=== PATIENT | female | born 1965 | race Caucasian/White ===

== ENCOUNTER 2017-05-25 06:20 | Day surgery (SDC) | payer BC ==
[~2017-05-25 06:20] MED LIST: Sodium Chloride 0.9% 10 ML Syringe FLUSH PRN; Sodium Chloride 0.9% 2.5 ML Syringe FLUSH PRN
[2017-05-25] MEDS ORDERED: Lactated Ringers 1,000 ML IV SCH (06:45)
[2017-05-25] MEDS ORDERED: Lidocaine 2% 5 ML SDV ONE (06:54)
[2017-05-25] MEDS ORDERED: Propofol 200 MG/20 ML SDV ONE (06:54)
[2017-05-25] MEDS ORDERED: fentaNYL 100 MCG/2 ML SDV ONE ×2 (06:54→08:15)
[2017-05-25] MEDS ORDERED: Ondansetron 4 MG/2 ML SDV ONE (06:54)
[2017-05-25] MEDS ORDERED: Midazolam 1 MG/ML 2 ML SDV ONE (06:54)
[2017-05-25] MEDS ORDERED: Acetaminophen 1,000 MG in Premix Bag 1 BAG IV ONE (07:36)
--- NOTE | 2017-05-25 07:39 | PCM.PREANE ---
Preanesthetic Assessment - Anesthesia/Transfusion/Family Hx Anesthesia History: Prior Anesthesia Without Reaction Family History of Anesthesia Reaction: No Transfusion History: No Prior Transfusion(s) - Review of Systems General: No Symptoms Pulmonary: No Symptoms Cardiovascular: No Symptoms Gastrointestinal: No Symptoms Neurological: No Symptoms Other: Reports: None - Physical Assessment NPO Status Date: 05/24/17 NPO Status Time: 19:00 O2 Sat by Pulse Oximetry: 96 Respiratory Rate: 16 Vital Signs: Last Vital Signs Temp 36.7 C 05/25/17 06:41 Pulse 80 05/25/17 06:41 Resp 16 05/25/17 06:41 BP 123/72 05/25/17 06:41 Pulse Ox 96 05/25/17 06:41 Height: 1.6 m Weight: 65.317 kg ASA Class: 2 Mental Status: Alert & Oriented x3 Airway Class: Mallampati = 1 Dentition: Reports: Normal Dentition ROM/Head Extension: Full Lungs: Clear to Auscultation - Lab Values: Laboratory Last Values WBC 8.56 K/uL (4.0-11.0) 05/24/17 14:41 RBC 4.41 M/uL (4.30-5.90) 05/24/17 14:41 Hgb 14.2 g/dL (12.0-16.0) 05/24/17 14:41 Hct 41.3 % (36.0-46.0) 05/24/17 14:41 MCV 93.7 fL (80.0-98.0) 05/24/17 14:41 MCH 32.2 pg (27.0-32.0) H 05/24/17 14:41 MCHC 34.4 g/dL (31.0-37.0) 05/24/17 14:41 RDW Std Deviation 44.3 fl (28.0-62.0) 05/24/17 14:41 RDW Coeff of Monty 13 % (11.0-15.0) 05/24/17 14:41 Plt Count 312 K/uL (150-400) 05/24/17 14:41 MPV 10.20 fL (7.40-12.00) 05/24/17 14:41 Nucleated RBC % 0.0 /100WBC 05/24/17 14:41 Nucleated RBCs # 0 K/uL 05/24/17 14:41 HCG, Qual NEGATIVE (NEG) 05/24/17 14:41 Blood Type O NEGATIVE 05/24/17 14:41 Antibody Screen POSITIVE 05/24/17 14:41 Antibody Identification Anti-D 05/24/17 14:41 - Allergies Allergies/Adverse Reactions: Allergies Allergy/AdvReac Type Severity Reaction Status Date / Time No Known Allergies Allergy Verified 05/23/17 08:32 - Anesthesia Plan Pre-Op Medication Ordered: None - Acknowledgements Anesthesia Type Planned: General Anesthesia Pt an Appropriate Candidate for the Planned Anesthesia: Yes Alternatives and Risks of Anesthesia Discussed w Pt/Guardian: Yes Pt/Guardian Understands and Agrees with Anesthesia Plan: Yes PreAnesthesia Questionnaire HEENT History: Reports: None Cardiovascular History: Reports: High Cholesterol, Hypertension Gastrointestinal History: Reports: GERD Genitourinary History: Reports: Other (See Below) Other Genitourinary History: stress incontinence - Past Surgical History Head Surgeries/Procedures: Reports: None HEENT Surgical History: Reports: Tonsillectomy Other GI Surgeries/Procedures: hemorrhoidectomy Female Surgical History: Reports: Tubal Ligation - SUBSTANCE USE Smoking Status *Q: Former Smoker Recreational Drug Use History: No - HOME MEDS Home Medications: Home Meds Ascorbate Calcium [Vitamin C] 1 tab PO DAILY 05/23/17 [History] Aspirin [[place] Aspirin] 81 mg PO DAILY 05/23/17 [History] Cholecalciferol (Vitamin D3) [Vitamin D3] 1 tab PO DAILY 05/23/17 [History] Cyanocobalamin (Vitamin B-12) [Vitamin B-12] 1 tab PO DAILY 05/23/17 [History] Lisinopril 20 mg PO DAILY 05/23/17 [History] Multivitamin [Multivitamins] 1 tab PO DAILY 05/23/17 [History] Pravastatin Sodium [Pravachol] 40 mg PO BEDTIME 05/23/17 [History] Ranitidine HCl [Ranitidine] 150 mg PO DAILY 05/23/17 [History] valACYclovir HCl [Valtrex] 500 mg PO DAILY 05/23/17 [History] - CURRENT (IN HOUSE) MEDS Current Meds: Current Medications Lactated Ringer's (Ringers, Lactated) 1,000 mls @ 125 mls/hr IV ASDIRECTED [facility] Last Admin: 05/25/17 06:49 Dose: 125 mls/hr Acetaminophen 1,000 mg/ Premix 100 mls @ 400 mls/hr IV NOW ONE Stop: 05/25/17 07:50 Sodium Chloride (Saline Flush) 10 ml FLUSH ASDIRECTED PRN PRN Reason: Keep Vein Open Sodium Chloride (Saline Flush) 2.5 ml FLUSH ASDIRECTED PRN PRN Reason: Keep Vein Open Discontinued Medications Fentanyl (Sublimaze) Confirm Administered Dose 100 mcg .ROUTE .STK-MED ONE Stop: 05/25/17 06:55 Lidocaine (Xylocaine-Mpf 2%) Confirm Administered Dose 5 ml .ROUTE .STK-MED ONE Stop: 05/25/17 06:55 Midazolam HCl (Versed 1 Mg/Ml) Confirm Administered Dose 2 mg .ROUTE .STK-MED ONE Stop: 05/25/17 06:55 Ondansetron HCl (Zofran) Confirm Administered Dose 4 mg .ROUTE .STK-MED ONE Stop: 05/25/17 06:55 Propofol (Diprivan 20 Ml) Confirm Administered Dose 200 mg .ROUTE .STK-MED ONE Stop: 05/25/17 06:55
[2017-05-25] MEDS ORDERED: Phenylephrine/Normal Saline 100 MCG/ML 10 ML Syringe ONE (08:13)
[2017-05-25] MEDS ORDERED: ePHEDrine 50 MG/ML SDV ONE (08:14)
[2017-05-25] MEDS ORDERED: fentaNYL 100 MCG/2 ML SDV IVPUSH PRN (08:18)
[2017-05-25] MEDS ORDERED: Ketorolac 30 MG/ML SDV ONE (08:19)
[2017-05-25] MEDS ORDERED: Morphine 2 MG/ML Syringe IVPUSH PRN (08:30)
[2017-05-25] MEDS ORDERED: Acetaminophen/oxyCODONE 325-5 MG Tab PO PRN ×2 (08:30)
[2017-05-25] MEDS ORDERED: Ondansetron 4 MG/2 ML SDV IVPUSH PRN (08:30)
[2017-05-25] MEDS ORDERED: Ketorolac 30 MG/ML SDV IVPUSH ONE (08:30)
[2017-05-25] MEDS ORDERED: Morphine 4 MG/ML Syringe IVPUSH PRN (08:30)
[2017-05-25] MEDS ORDERED: Promethazine 25 MG/ML SDV IM PRN (08:30)
--- NOTE | 2017-05-25 08:35 | PCM.OPNOTE ---
- General Post-Op/Procedure Note Date of Surgery/Procedure: 05/25/17 Operative Procedure(s): TVT, cysto. Pre Op Diagnosis: ANNAMARIA Post-Op Diagnosis: Same Anesthesia Technique: General ET Tube Primary Surgeon: Garret Frankel Music Promoter: Megha Early EBL in mLs: 50 Complications: None Condition: Good
--- NOTE | 2017-05-25 08:36 | PCM.DCSUM1 ---
Discharge Summary - Discharge Data Discharge Date: 05/25/17 Discharge Disposition: Home, Self-Care 01 Condition: Good - Patient Summary/Data Operative Procedure(s) Performed: TVT, cysto. - Patient Instructions Diet: Usual Diet as Tolerated Activity: As Tolerated Driving: Do Not Drive Showering/Bathing: May Shower Notify Provider of: Fever, Increased Pain - Discharge Plan Home Medications: Home Meds Ascorbate Calcium [Vitamin C] 1 tab PO DAILY 05/23/17 [History] Aspirin [[place] Aspirin] 81 mg PO DAILY 05/23/17 [History] Cholecalciferol (Vitamin D3) [Vitamin D3] 1 tab PO DAILY 05/23/17 [History] Cyanocobalamin (Vitamin B-12) [Vitamin B-12] 1 tab PO DAILY 05/23/17 [History] Lisinopril 20 mg PO DAILY 05/23/17 [History] Multivitamin [Multivitamins] 1 tab PO DAILY 05/23/17 [History] Pravastatin Sodium [Pravachol] 40 mg PO BEDTIME 05/23/17 [History] Ranitidine HCl [Ranitidine] 150 mg PO DAILY 05/23/17 [History] valACYclovir HCl [Valtrex] 500 mg PO DAILY 05/23/17 [History] - General Info Date of Service: 05/25/17 Functional Status: Reports: Pain Controlled - Review of Systems General: Reports: No Symptoms HEENT: Reports: No Symptoms Pulmonary: Reports: No Symptoms Cardiovascular: Reports: No Symptoms Gastrointestinal: Reports: No Symptoms Genitourinary: Reports: No Symptoms Musculoskeletal: Reports: No Symptoms Skin: Reports: No Symptoms Neurological: Reports: No Symptoms Psychiatric: Reports: No Symptoms - Patient Data Vitals - Most Recent: Last Vital Signs Temp 36.7 C 05/25/17 06:41 Pulse 80 05/25/17 06:41 Resp 16 05/25/17 07:39 BP 123/72 05/25/17 06:41 Pulse Ox 96 05/25/17 07:39 Weight - Most Recent: 65.317 kg Lab Results - Last 24 hrs: Laboratory Results - last 24 hr 05/24/17 05/24/17 05/24/17 Range/Units 14:41 14:41 14:41 WBC 8.56 (4.0-11.0) K/uL RBC 4.41 (4.30-5.90) M/uL Hgb 14.2 (12.0-16.0) g/dL Hct 41.3 (36.0-46.0) % MCV 93.7 (80.0-98.0) fL MCH 32.2 H (27.0-32.0) pg MCHC 34.4 (31.0-37.0) g/dL RDW Std Deviation 44.3 (28.0-62.0) fl RDW Coeff of Monty 13 (11.0-15.0) % Plt Count 312 (150-400) K/uL MPV 10.20 (7.40-12.00) fL Nucleated RBC % 0.0 /100WBC Nucleated RBCs # 0 K/uL HCG, Qual NEGATIVE (NEG) Blood Type O NEGATIVE Antibody Screen POSITIVE Antibody Identification Anti-D Med Orders - Current: Current Medications Fentanyl (Sublimaze) 50 mcg IVPUSH Q5M PRN PRN Reason: Pain (severe 7-10) Stop: 05/26/17 08:19 Lactated Ringer's (Ringers, Lactated) 1,000 mls @ 125 mls/hr IV ASDIRECTED [facility]AN[facility] Last Admin: 05/25/17 06:49 Dose: 125 mls/hr Ketorolac Tromethamine (Toradol) 30 mg IVPUSH ONETIME ONE Stop: 05/25/17 08:31 Ketorolac Tromethamine (Toradol) 30 mg IVPUSH Q6H PRN PRN Reason: Pain (severe 7-10) Stop: 05/30/17 08:30 Morphine Sulfate (Morphine) 2 mg IVPUSH Q2H PRN PRN Reason: Pain (severe 7-10) Morphine Sulfate (Morphine) 4 mg IVPUSH Q2H PRN PRN Reason: Pain (severe 7-10) Ondansetron HCl (Zofran) 4 mg IVPUSH Q6H PRN PRN Reason: Nausea/Vomiting Oxycodone/Acetaminophen (Percocet 325-5 Mg) 1 tab PO Q4H PRN PRN Reason: Pain (moderate 4-6) Oxycodone/Acetaminophen (Percocet 325-5 Mg) 2 tab PO Q4H PRN PRN Reason: Pain (moderate 4-6) Promethazine HCl (Phenergan) 25 mg IM Q6H PRN PRN Reason: Nausea/Vomiting Sodium Chloride (Saline Flush) 10 ml FLUSH ASDIRECTED PRN PRN Reason: Keep Vein Open Sodium Chloride (Saline Flush) 2.5 ml FLUSH ASDIRECTED PRN PRN Reason: Keep Vein Open Discontinued Medications Ephedrine Sulfate (Ephedrine Sulfate) Confirm Administered Dose 50 mg .ROUTE .STK-MED ONE Stop: 05/25/17 08:15 Fentanyl (Sublimaze) Confirm Administered Dose 100 mcg .ROUTE .STK-MED ONE Stop: 05/25/17 06:55 Fentanyl (Sublimaze) Confirm Administered Dose 100 mcg .ROUTE .STK-MED ONE Stop: 05/25/17 08:16 Acetaminophen 1,000 mg/ Premix 100 mls @ 400 mls/hr IV NOW ONE Stop: 05/25/17 07:50 Last Admin: 05/25/17 07:50 Dose: 400 mls/hr Acetaminophen (Ofirmev) Confirm Administered Dose 100 mls @ as directed IV .STK- MED ONE Stop: 05/25/17 07:45 Ketorolac Tromethamine (Toradol) Confirm Administered Dose 30 mg .ROUTE .STK- MED ONE Stop: 05/25/17 08:20 Lidocaine (Xylocaine-Mpf 2%) Confirm Administered Dose 5 ml .ROUTE .STK-MED ONE Stop: 05/25/17 06:55 Midazolam HCl (Versed 1 Mg/Ml) Confirm Administered Dose 2 mg .ROUTE .STK-MED ONE Stop: 05/25/17 06:55 Ondansetron HCl (Zofran) Confirm Administered Dose 4 mg .ROUTE .STK-MED ONE Stop: 05/25/17 06:55 Phenylephrine HCl (Phenylephrine In Ns 100 Mcg/Ml) Confirm Administered Dose 1 mg .ROUTE .STK-MED ONE Stop: 05/25/17 08:14 Propofol (Diprivan 20 Ml) Confirm Administered Dose 200 mg .ROUTE .STK-MED ONE Stop: 05/25/17 06:55 - Exam General: Reports: Alert, Oriented HEENT: Reports: Pupils Equal, Pupils Reactive, EOMI, Mucous Membr. Moist/[place] Neck: Reports: Supple Lungs: Reports: Clear to Auscultation, Normal Respiratory Effort Cardiovascular: Reports: Regular Rate, Regular Rhythm GI/Abdominal Exam: Normal Bowel Sounds, Soft, Non-Tender, No Organomegaly, No Distention, No Abnormal Bruit, No Mass, Pelvis Stable (Female) Exam: Normal External Exam, Normal Speculum Exam, Normal Bimanual Exam Rectal (Female) Exam: Normal Exam, Normal Rectal Tone Back Exam: Reports: Normal Inspection, Full Range of Motion Extremities: Normal Inspection, Normal Range of Motion, Non-Tender, No Pedal Edema, Normal Capillary Refill Skin: Reports: Warm, Dry, Intact Wound/Incisions: Reports: Healing Well Neurological: Reports: No New Focal Deficit Psy/Mental Status: Reports: Alert, Normal Affect, Normal Mood *Q Meaningful Use (DIS) - VTE *Q VTE Criteria *Q: - Stroke *Q Stroke Criteria *Q: - AMI *Q AMI Criteria *Q:
--- NOTE | 2017-05-25 09:00 | PCM.POSTAN ---
POST ANESTHESIA ASSESSMENT - MENTAL STATUS Mental Status: Alert, Oriented - RESPIRATORY Respiratory Status: Respiratory Rate WNL, Airway Patent, O2 Saturation Stable - CARDIOVASCULAR CV Status: Pulse Rate WNL, Blood Pressure Stable - GASTROINTESTINAL GI Status: No Symptoms - POST OP HYDRATION Hydration Status: Adequate & Stable
--- NOTE | 2017-05-25 09:10 | PCM48HPAN ---
Post Anesthesia Note - EVALUATION WITHIN 48HRS OF ANESTHETIC Vital Signs in Normal Range: Yes Patient Participated in Evaluation: Yes Respiratory Function Stable: Yes Airway Patent: Yes Cardiovascular Function Stable: Yes Hydration Status Stable: Yes Pain Control Satisfactory: Yes Nausea and Vomiting Control Satisfactory: Yes Mental Status Recovered: Yes
--- NOTE | 2017-05-25 11:12 | OR ---
SURGEON: Garret Frankel MD DATE OF PROCEDURE: 05/25/2017 PREOPERATIVE DIAGNOSIS: Stress urinary incontinence. POSTOPERATIVE DIAGNOSIS: Stress urinary incontinence. OPERATION PERFORMED: Solyx TVT and cystoscopy. SCARFER: VANITA Naranjo ANESTHESIA: LMA, Mr. Yo Downing and Dr. Darby. ESTIMATED BLOOD LOSS: 75 mL. COMPLICATIONS: None. FINDINGS: Stress urinary incontinence. INDICATIONS FOR SURGERY: This is a 52-year-old patient. She has stress urinary incontinence. She has urodynamic study in the office, which is confirmed as stress urinary incontinence. The patient is admitted for treatment. PROCEDURE IN DETAIL: The patient was brought to the OR, properly identified, and after adequate level anesthesia the patient was placed in lithotomy position, prepped and draped in sterile fashion as usual. Straight catheter was used to empty the bladder and the area of about 1 inch beneath the urethra, infiltrated with copious amount of normal saline was opened in the midline with electrocautery and the vaginal wall dissected on both side in a tunneling fashion, creating a tunnel for the Solyx TVT. Once that was done and then the Solyx TVT was anchored behind the pubic rami on both sides with a due amount of tension to elevate the urethrovesical angle once the TVT was in place and the vaginal cuff was closed with 2-0 Vicryl continuous interlocking for hemostasis. After that, cystoscopy was performed. The bladder was intact. Both ureteric orifices were seen with the urine coming from both of them. Thus, the patency of both ureters verified. Satisfied with these findings, the procedure ended. Instrument and sponge count was correct. The patient tolerated the procedure well, went to recovery room in stable general condition. GOGO / RAVIN /[id number]
[2017-05-25] MEDS ORDERED: Ketorolac 30 MG/ML SDV IVPUSH PRN (14:30)
== END 2017-05-25 10:00 | disposition home or self-care (01) ==
LOC: MW.SDS 06:20
PROVIDERS: ATTEND Obstetrics & Gynecology
DX: N39.3 Stress incontinence (female) (male) (principal); E78.5 Hyperlipidemia, unspecified; I10 Essential (primary) hypertension; K21.9 Gastro-esophageal reflux disease without esophagitis; Z79.899 Other long term (current) drug therapy; Z79.82 Long term (current) use of aspirin; Z98.890 Other specified postprocedural states; Z90.89 Acquired absence of other organs; Z98.51 Tubal ligation status; Z87.891 Personal history of nicotine dependence
CPT/HCPCS: 36415; 57288; 84703; 85027; 86850; 86870; 86900; 86901; C1781; J1885; J2250; J2405; J3010; J7120; 00860; J2704

== ENCOUNTER 2017-07-19 06:12 | Day surgery (SDC) | payer SELFPAY, BC ==
[2017-07-19] MEDS ORDERED: fentaNYL 100 MCG/2 ML SDV ONE (07:17)
[2017-07-19] MEDS ORDERED: Midazolam 1 MG/ML 2 ML SDV ONE (07:17)
[2017-07-19] MEDS ORDERED: Propofol 200 MG/20 ML SDV ONE (07:17)
[2017-07-19] MEDS ORDERED: Lidocaine 2% 5 ML SDV ONE (07:17)
[2017-07-19] MEDS ORDERED: Dexamethasone 4 MG/ML 5 ML MDV ONE (07:17)
--- NOTE | 2017-07-19 07:24 | PCM.PREANE ---
Preanesthetic Assessment - Anesthesia/Transfusion/Family Hx Anesthesia History: Prior Anesthesia Without Reaction Family History of Anesthesia Reaction: No Transfusion History: No Prior Transfusion(s) - Review of Systems General: No Symptoms Pulmonary: No Symptoms Cardiovascular: No Symptoms Gastrointestinal: No Symptoms Neurological: No Symptoms Other: Reports: None - Physical Assessment NPO Status Date: 07/18/17 NPO Status Time: 22:00 O2 Sat by Pulse Oximetry: 99 Respiratory Rate: 16 Vital Signs: Last Vital Signs Temp 36.7 C 07/19/17 06:15 Pulse 75 07/19/17 06:15 Resp 16 07/19/17 06:15 BP 117/75 07/19/17 06:15 Pulse Ox 99 07/19/17 06:15 Height: 1.61 m Weight: 70.307 kg ASA Class: 2 Mental Status: Alert & Oriented x3 Dentition: Reports: Normal Dentition ROM/Head Extension: Full Lungs: Clear to Auscultation, Normal Respiratory Effort Cardiovascular: Regular Rate, Regular Rhythm - Allergies Allergies/Adverse Reactions: Allergies Allergy/AdvReac Type Severity Reaction Status Date / Time No Known Allergies Allergy Verified 07/14/17 11:15 - Anesthesia Plan Pre-Op Medication Ordered: None - Acknowledgements Anesthesia Type Planned: MAC Pt an Appropriate Candidate for the Planned Anesthesia: Yes Alternatives and Risks of Anesthesia Discussed w Pt/Guardian: Yes Pt/Guardian Understands and Agrees with Anesthesia Plan: Yes PreAnesthesia Questionnaire HEENT History: Reports: None Cardiovascular History: Reports: High Cholesterol, Hypertension Gastrointestinal History: Reports: GERD Genitourinary History: Musculoskeletal History: Reports: Fracture Other Musculoskeletal History: hx of fx right great toe Neurological History: Reports: Other (See Below) Other Neuro History: hx of seasickness - Past Surgical History Head Surgeries/Procedures: HEENT Surgical History: Reports: Tonsillectomy Other GI Surgeries/Procedures: hemorrhoidectomy Female Surgical History: Reports: Tubal Ligation, Other (See Below) Other Female Surgeries/Procedures: TVT - SUBSTANCE USE Smoking Status *Q: Former Smoker Recreational Drug Use History: No - HOME MEDS Home Medications: Home Meds Ascorbate Calcium [Vitamin C] 1 tab PO DAILY 05/23/17 [History] Aspirin [[place] Aspirin] 81 mg PO DAILY 05/23/17 [History] Cholecalciferol (Vitamin D3) [Vitamin D3] 1 tab PO DAILY 05/23/17 [History] Cyanocobalamin (Vitamin B-12) [Vitamin B-12] 1 tab PO DAILY 05/23/17 [History] Lisinopril 20 mg PO DAILY 05/23/17 [History] Multivitamin [Multivitamins] 1 tab PO DAILY 05/23/17 [History] Pravastatin Sodium [Pravachol] 40 mg PO BEDTIME 05/23/17 [History] Ranitidine HCl [Ranitidine] 150 mg PO DAILY 05/23/17 [History] valACYclovir HCl [Valtrex] 500 mg PO DAILY 05/23/17 [History] - CURRENT (IN HOUSE) MEDS Current Meds: Current Medications Hydrocodone Bitart/Acetaminophen ([place] 325-5 Mg) 1 tab PO Q4H PRN PRN Reason: Pain Bupivacaine HCl/Epinephrine Bitart (Marcaine 0.25%/Epinephrine 1:200,000) 10 ml INJECT ONETIME ONE Stop: 07/19/17 08:01 Cefazolin Sodium/Dextrose 2 gm (/ Premix) 50 mls @ 100 mls/hr IV ONETIME ONE Stop: 07/19/17 08:29 Lactated Ringer's (Ringers, Lactated) 1,000 mls @ 125 mls/hr IV ASDIRECTED SHANNAN Discontinued Medications Dexamethasone (Dexamethasone) Confirm Administered Dose 20 mg .ROUTE .STK-MED ONE Stop: 07/19/17 07:18 Fentanyl (Sublimaze) Confirm Administered Dose 100 mcg .ROUTE .STK-MED ONE Stop: 07/19/17 07:18 Lidocaine (Xylocaine-Mpf 2%) Confirm Administered Dose 5 ml .ROUTE .STK-MED ONE Stop: 07/19/17 07:18 Midazolam HCl (Versed 1 Mg/Ml) Confirm Administered Dose 2 mg .ROUTE .STK-MED ONE Stop: 07/19/17 07:18 Propofol (Diprivan 20 Ml) Confirm Administered Dose 400 mg .ROUTE .STK-MED ONE Stop: 07/19/17 07:18
[2017-07-19] MEDS ORDERED: Tetracaine 0.5% Ophth Soln 15 ML Bottle ONE (07:25)
[2017-07-19] MEDS ORDERED: Dexamethasone/Tobramycin 0.1-0.3% Ophth Susp 2.5 ML Bottle ONE (07:25)
[2017-07-19] MEDS ORDERED: Dexamethasone/Tobramycin 0.1-0.3% Ophth Oint 3.5 GM Tube ONE (07:25)
[2017-07-19] MEDS ORDERED: Bupivacaine 25%/EPINEPHrine/PF 30 ML ONE (07:26)
[2017-07-19] MEDS ORDERED: ceFAZolin/Dextrose,Iso-Osmotic 2 GM/50 ML Duplex Bag IV ONE (07:35)
[2017-07-19] MEDS ORDERED: Lactated Ringers 1,000 ML IV SCH (08:00)
[2017-07-19] MEDS ORDERED: ceFAZolin 2 GM in Premix Bag 1 BAG IV ONE (08:00)
[2017-07-19] MEDS ORDERED: Acetaminophen/HYDROcodone 325-5 MG Tab PO PRN (08:00)
[2017-07-19] MEDS ORDERED: Bupivacaine 0.25%/EPINEPHrine 1:200,000 10 ML SDV INJECT ONE (08:00)
--- NOTE | 2017-07-19 08:39 | PCM48HPAN ---
Post Anesthesia Note - EVALUATION WITHIN 48HRS OF ANESTHETIC Vital Signs in Normal Range: Yes Patient Participated in Evaluation: Yes Respiratory Function Stable: Yes Airway Patent: Yes Cardiovascular Function Stable: Yes Hydration Status Stable: Yes Pain Control Satisfactory: Yes Nausea and Vomiting Control Satisfactory: Yes Mental Status Recovered: Yes Resp Rate: 16
--- NOTE | 2017-07-21 12:51 | PCM.OPNOTE ---
- General Post-Op/Procedure Note Date of Surgery/Procedure: 07/19/17 Operative Procedure(s): bilateral upper lid blepharoplasties Pre Op Diagnosis: upper eyelid excess skin - cosmetic Post-Op Diagnosis: Same Anesthesia Technique: Local, MAC Primary Surgeon: Kaylyn Gordillo Security Specialist: Ling Lawrence Complications: None Condition: Good
--- NOTE | 2017-07-21 14:12 | OR ---
SURGEON: PAULA SMITH MD DATE OF PROCEDURE: 07/19/2017 PREOPERATIVE DIAGNOSIS: Excess upper eyelid skin, cosmetic. POSTOPERATIVE DIAGNOSIS: Excess upper eyelid skin, cosmetic. PROCEDURE: Bilateral upper lid blepharoplasties for excess skin. DIRECTOR WORKERS COMPENSATION: DEREK Gupta Reason for certified physician assistant was retraction, draping, prepping, and closure assistance. ANESTHESIA: Local MAC. INDICATIONS: Ms. Lockett is a 52-year-old female seen today for bilateral upper lid blepharoplasty. She has excess upper eyelid skin that is not quite causing visual obstruction, but it is bothersome to her. She would like this removed. Risks were including, but not limited to, bleeding, infection, damage to underlying or overlying structures, possible need for future interventions, possible scarring. PROCEDURE IN DETAIL: After informed consent was obtained and placed on the chart, the patient was brought to the operating theater and laid in supine position. After adequate local MAC anesthesia was obtained, the area was prepped and draped in the normal fashion using a Betadine cleansing solution. Once adequately prepped and draped, the areas were marked sterilely for symmetric and appropriate excision of skin. Once adequately marked and measured appropriately, the area was anesthetized with 0.25% Marcaine in a field block. Once adequate anesthesia and hemostasis was obtained with this, the excess skin was excised in the standard elliptical fashion and once adequately excised, the wounds were closed with a single deep Monocryl stitch and a running 6-0 Prolene for the skin. Dissection and closure with removal of excess skin were completed bilaterally. Once adequately completed, 6-0 Prolene stitches were Steri-Stripped in place at the lateral and medial margin of the forehead and cheek. Once adequately secured, the area was copiously washed and irrigated. The patient tolerated this well. All counts and needles were correct at the end of the case. FOLLOWUP INSTRUCTIONS: The patient will see us in 1 week, sooner if any problems, questions, or concerns. She was going to use [id number] medications and call if any need for additional. HEGGTDALLAS / IRMAL /[id number]
== END 2017-07-19 09:15 | disposition home or self-care (01) ==
LOC: MW.SDS 06:12
PROVIDERS: ATTEND Plastic Surgery
DX: H02.831 Dermatochalasis of right upper eyelid (principal); H02.834 Dermatochalasis of left upper eyelid; E78.5 Hyperlipidemia, unspecified; I10 Essential (primary) hypertension; B00.9 Herpesviral infection, unspecified; N39.3 Stress incontinence (female) (male); K21.9 Gastro-esophageal reflux disease without esophagitis; Z87.891 Personal history of nicotine dependence; Z98.890 Other specified postprocedural states; Z79.82 Long term (current) use of aspirin; Z79.899 Other long term (current) drug therapy; Z90.89 Acquired absence of other organs; Z98.51 Tubal ligation status
CPT/HCPCS: 15822; J0690; J1100; J2250; J3010; J7120; A9270-GY; J2704

== ENCOUNTER 2019-07-22 07:47 | Emergency (ER) | payer BC, OTHER ==
--- NOTE | 2019-07-22 08:08 | EDM.PDOC ---
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 Patient is also complaining of a sore throat. Both symptoms started this morning. Cough is mild and nonproductive. Patient is recently returned from [facility] in [place] and had stopped lowers both in [place] and [place]. This is before the smith outbreak had affected both those dates. Was wearing masks in both airports and on both directions on the airplane. She denies any fever chills or any other symptoms. Onset: Today Location: Reports: Chest Severity: Mild Improves with: Reports: Medication Worsens with: Reports: None Associated Symptoms: Reports: Other (Sore throat.) - Related Data Allergies Allergy/AdvReac Type Severity Reaction Status Date / Time No Known Allergies Allergy Verified 07/22/19 08:05 Home Meds: Home Meds Ascorbate Calcium [Vitamin C] 1 tab PO DAILY 05/23/17 [History] Aspirin [[place] Aspirin EC] 81 mg PO DAILY 05/23/17 [History] Cholecalciferol (Vitamin D3) [Vitamin D3] 1 tab PO DAILY 05/23/17 [History] Cyanocobalamin (Vitamin B-12) [Vitamin B-12] 1 tab PO DAILY 05/23/17 [History] Multivitamin [Multivitamins] 1 tab PO DAILY 05/23/17 [History] Pravastatin Sodium [Pravachol] 40 mg PO BEDTIME 05/23/17 [History] Ranitidine HCl [Ranitidine] 150 mg PO DAILY 05/23/17 [History] valACYclovir HCl [Valtrex] 500 mg PO DAILY 05/23/17 [History] Losartan [Cozaar] 07/22/19 [History] Past Medical History HEENT History: Reports: None Cardiovascular History: Reports: High Cholesterol, Hypertension Gastrointestinal History: Reports: GERD Genitourinary History: Musculoskeletal History: Reports: Fracture Other Musculoskeletal History: hx of fx right great toe Neurological History: Reports: Other (See Below) Other Neuro History: hx of seasickness - Past Surgical History Head Surgeries/Procedures: HEENT Surgical History: Reports: Tonsillectomy Other GI Surgeries/Procedures: hemorrhoidectomy Female Surgical History: Reports: Tubal Ligation, Other (See Below) Other Female Surgeries/Procedures: TVT ED ROS GENERAL - Review of Systems Review Of Systems: Comprehensive ROS is negative, except as noted in HPI. Constitutional: Denies: Fever, Chills, Malaise Respiratory: Reports: Cough (Nonproductive cough.) ED EXAM, GENERAL - Physical Exam Exam: See Below Free Text/Narrative:: Exam: See Below Exam Limited By: No Limitations Head: Atraumatic, throat shows slight erythematous. Neck: Normal Inspection. No: Carotid Bruit, Lymphadenopathy (R) Respiratory/Chest: No Respiratory Distress, Lungs Clear, Normal Breath Sounds, No Accessory Muscle Use. No: Chest Non-Tender Cardiovascular: Normal Peripheral Pulses, Regular Rate, Rhythm, No Edema, No JVD GI/Abdominal: Normal Bowel Sounds, Tender. No: Non-Tender, Splenomegaly Back Exam: Normal Inspection. No: CVA Tenderness (R) Extremities: Normal Inspection. No: No Pedal Edema Neurological: Alert, Oriented, Normal Cognition Psychiatric: Normal Affect Skin Exam: Warm General Appearance: Alert, No Apparent Distress Course - Vital Signs Text/Narrative:: Coronavirus nasal swab was performed. Employee health is placing patient in quarantine for up to 48 hours until test results are returned. Last Recorded V/S: Last Vital Signs Temp 36.3 C 07/22/19 08:08 Pulse 60 07/22/19 08:08 Resp 18 07/22/19 08:08 BP 125/83 07/22/19 08:08 Pulse Ox 99 07/22/19 08:08 Departure - Departure Time of Disposition: 08:26 Disposition: Home, Self-Care 01 Condition: Good Clinical Impression: Nonproductive cough - Discharge Information Referrals: Rita Key NP [Primary Care Provider] - Forms: ED Department Discharge Care Plan Goals: Counter meds as needed. Return to ER symptoms are worse. Follow-up with PCP if symptoms continue. Sepsis Event Note - Focused Exam Vital Signs: Vital Signs Temp Pulse Resp BP Pulse Ox 07/22/19 08:08 36.3 C 60 18 125/83 99 Date Exam was Performed: 07/22/19 Time Exam was Performed: 08:20
== END 2019-07-22 08:57 | disposition home or self-care (01) ==
LOC: MW.ED 07:47
DX: R05 Cough (principal); E78.00 Pure hypercholesterolemia, unspecified; I10 Essential (primary) hypertension; K21.9 Gastro-esophageal reflux disease without esophagitis; Z79.82 Long term (current) use of aspirin; Z79.899 Other long term (current) drug therapy
CPT/HCPCS: 99283; U0001; 99282

== ENCOUNTER 2020-02-16 07:45 | Emergency (ER) | payer BC ==
[2020-02-16] MEDS ORDERED: Acetaminophen 325 MG Tab PO ONE (08:04)
--- NOTE | 2020-02-16 08:37 | CR ---
INDICATION: Knee pain. Three views of the left knee. Findings: Normal alignment. No fractures. No effusions. Soft tissues are unremarkable. Dictated by Dasha Minaya MD @ Feb 16 2020 8:35AM Signed by Dr. Dasha Minaya @ Feb 16 2020 8:36AM
--- NOTE | 2020-02-16 08:49 | EDM.PDOC ---
ED HPI GENERAL MEDICAL PROBLEM - General Chief Complaint: Lower Extremity Injury/Pain Stated Complaint: CAN'T BEND RIGHT KNEE Time Seen by Provider: 02/16/20 07:48 - History of Present Illness INITIAL COMMENTS - FREE TEXT/NARRATIVE: HISTORY AND PHYSICAL: History of present illness: This 54-year-old female with past medical history of arthritis, immunizations otherwise up-to-date, was walking on the stairs and fuzzy socks when she slipped falling down the stairs causing her left leg to be extended behind her she fell twisting her left knee. She has medial left knee pain that she rates as moderate to severe. It is worse with walking, worse with flexion and forced extension, and better with rest. Some swelling. Denies any other associated signs or symptoms. No other injuries from falling. No other modifying, aggrav ating or alleviating factors. Review of systems: A 10-point review of systems, other than pertinent positives and negatives as stated per HPI, is otherwise negative. Past medical history: As per history of present illness and as reviewed below otherwise noncontributory. Surgical history: As per history of present illness and as reviewed below otherwise noncontributory. Social history: No reported history of drug or alcohol abuse. Family history: As per history of present illness and as reviewed below otherwise noncontributory. Physical exam: VITAL SIGNS: Reviewed. GENERAL: Peers to be in acute pain but is cheerful and otherwise pleasant HEAD: No signs of head trauma. EYES: Pupils are equal. Extraocular motions intact. EARS: Hearing grossly intact. MOUTH: Oropharynx is normal. NECK: No adenopathy, no JVD. CHEST: Chest with clear breath sounds bilaterally. No wheezes, rales, or rhonchi. CARDIAC: Regular rate and rhythm. Normal S1 and S2, without murmurs, gallops, or rubs. VASCULAR: Peripheral pulses normal and equal in all extremities. ABDOMEN: Soft, without detectable tenderness. No sign of distention. No rebound or guarding, and no masses palpated. MUSCULOSKELETAL: Limited range of motion of left knee. Pain with flexion. The right knee has no ligamentous laxity in any plane. Both lower extremities have normal distal neurovascular function. There is no anterior posterior laxity in the left knee. There is some mild medial laxity and tenderness along the medial meniscus and medial collateral ligament. The lateral collateral ligament is intact. NEUROLOGIC EXAM: Alert and oriented x 3. No focal sensory or motor deficits. Speech normal. Follows commands. PSYCHIATRIC: Mood normal. SKIN: No rash or lesions. Initial Differential Diagnosis & Plan: Extremity trauma: Differential diagnosis includes fracture, dislocation, strain, contusion, tendon or ligamentous injury, compartment syndrome, neurovascular injury, muscle rupture. No evidence of compartment syndrome. Minimal joint effusion. Lateral collateral and anterior collateral and posterior collateral ligaments are intact. There is some laxity in the medial collateral ligament and tenderness along the joint. Given direct trauma I will obtain an x-ray to rule out fracture. Appears to have a medial collateral ligament injury and likely meniscus injury. Definitive disposition and diagnosis as appropriate pending reevaluation and review of above. Left knee Pain Score (Numeric/FACES): 8 - Related Data Allergies Allergy/AdvReac Type Severity Reaction Status Date / Time No Known Allergies Allergy Verified 02/16/20 08:00 Home Meds: Home Meds Ascorbate Calcium [Vitamin C] 1 tab PO DAILY 05/23/17 [History] Aspirin [Barnes Aspirin EC] 81 mg PO DAILY 05/23/17 [History] Cholecalciferol (Vitamin D3) [Vitamin D3] 1 tab PO DAILY 05/23/17 [History] Cyanocobalamin (Vitamin B-12) [Vitamin B-12] 1 tab PO DAILY 05/23/17 [History] Multivitamin [Multivitamins] 1 tab PO DAILY 05/23/17 [History] Pravastatin Sodium [Pravachol] 40 mg PO BEDTIME 05/23/17 [History] Ranitidine HCl [Ranitidine] 150 mg PO DAILY 05/23/17 [History] valACYclovir HCl [Valtrex] 500 mg PO DAILY 05/23/17 [History] Losartan [Cozaar] 07/22/19 [History] Past Medical History HEENT History: Reports: None Cardiovascular History: Reports: High Cholesterol, Hypertension Gastrointestinal History: Reports: GERD 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: Musculoskeletal History: Reports: Fracture Other Musculoskeletal History: hx of fx right great toe Neurological History: Reports: Other (See Below) Other Neuro History: hx of seasickness - Infectious Disease History Infectious Disease History: Reports: Chicken Pox - Past Surgical History HEENT Surgical History: Reports: Tonsillectomy Other GI Surgeries/Procedures: hemorrhoidectomy Female Surgical History: Reports: Tubal Ligation, Other (See Below) Other Female Surgeries/Procedures: TVT Social & Family History - Family History Family Medical History: Noncontributory - Caffeine Use Caffeine Use: Reports: Coffee Review of Systems - Review of Systems Review Of Systems: See Below (noted) ED EXAM, GENERAL - Physical Exam Exam: See Below (note) ED TRAUMA EXTREMITY PROCEDURES - Additional/Other Procedure(s) Other (Free Text) Procedure(s): PROCEDURE: STRAPPING Benefits, alternative, risks discussed, time out taken Pain was controlled before the procedure. The affected area was strapped using medical grade elastic bandage / tape. Neurovascular remained intact afterward. Knee Course - Vital Signs Last Recorded V/S: Last Vital Signs Temp 96.6 F L 02/16/20 07:56 Pulse 110 H 02/16/20 07:56 Resp 18 02/16/20 07:56 BP 144/92 H 02/16/20 07:56 Pulse Ox 97 02/16/20 07:56 - Orders/Labs/Meds Meds: Medications Discontinued Medications Generic Name Dose Route Start Last Admin Trade Name Shantel PRN Reason Stop Dose Admin Acetaminophen 975 mg 02/16/20 08:04 02/16/20 08:09 Tylenol PO 02/16/20 08:05 975 mg NOW ONE Administration - Re-Assessments/Exams Free Text/Narrative Re-Assessment/Exam: 02/16/20 08:48 Ambulates well after strapping. Does not want any muscle relaxant or other pain medications. Recommended follow-up for MRI. My diagnostic impression: 1. Left medial collateral ligament strain/tear 2. Left meniscus injury 3. Direct trauma with negative x-rays Plan Strapping, rest, icing, elevation, compression, anti-inflammatories and pain control. MRI to follow Departure - Departure Time of Disposition: 08:49 Disposition: Home, Self-Care 01 Clinical Impression: MCL sprain of left knee, Knee effusion, left - Discharge Information *PRESCRIPTION DRUG MONITORING PROGRAM REVIEWED*: Not Applicable *COPY OF PRESCRIPTION DRUG MONITORING REPORT IN PATIENT MARIANA: Not Applicable Instructions: Knee Sprain, Adult, [id number], Knee Effusion, [id number] Referrals: Rita Key [employer] [Primary Care Provider] - Additional Instructions: The following information is given to patients seen in the emergency department who are being discharged to home. This information is to outline your options f or follow-up care. We provide all patients seen in our emergency department with a follow-up referral. The need for follow-up, as well as the timing and circumstances, are variable depending upon the specifics of your emergency department visit. If you don't have a primary care physician on staff, we will provide you with a referral. We always advise you to contact your personal physician following an emergency department visit to inform them of the circumstance of the visit and for follow-up with them and/or the need for any referrals to a consulting specialist. The emergency department will also refer you to a specialist when appropriate. This referral assures that you have the opportunity for follow-up care with a specialist. All of these measure are taken in an effort to provide you with optimal care, which includes your follow-up. Thank you for coming to the [facility] urgency department for your care today. It was Dr. Bullock's pleasure to take care of you. [facility] [address], [address] [place] [address] Your x-rays show no evidence of fracture. You felt better after strapping of your knee. I recommend anti-inflammatories for the next 10 to 14 days. Please coat your stomach or take an antiacid with your anti-inflammatories. You can add Tylenol for additional pain. Encourage right to further evaluate your injury. Under all circumstances we always encourage you to contact your private physician who remains a resource for coordinating your care. When calling for follow-up care, please make the office aware that this follow-up is from your recent emergency room visit. If for any reason you are refused follow-up, please contact the [facility] Emergency Department at and asked to speak to the emergency department charge nurse. Sepsis Event Note (ED) - Evaluation Sepsis Screening Result: No Definite Risk - Focused Exam Vital Signs: Vital Signs Temp Pulse Resp BP Pulse Ox 02/16/20 07:56 96.6 F L 110 H 18 144/92 H 97
== END 2020-02-16 09:06 | disposition home or self-care (01) ==
LOC: MW.ED 07:45
DX: S83.412A Sprain of medial collateral ligament of left knee, initial encounter (principal); M25.462 Effusion, left knee; I10 Essential (primary) hypertension; E78.00 Pure hypercholesterolemia, unspecified; K21.9 Gastro-esophageal reflux disease without esophagitis; Z98.51 Tubal ligation status; Z79.82 Long term (current) use of aspirin; Z79.899 Other long term (current) drug therapy; X50.1XXA Overexertion from prolonged static or awkward postures, initial encounter
CPT/HCPCS: 73562; 99283; A9270